=== PATIENT | male | born 1950 | race Caucasian/White ===

== ENCOUNTER 2019-05-20 13:42 | Day surgery (SDC) | payer BC ==
[~2019-05-20] VITALS: Ht 175.3 cm; Wt 92.0 kg
[2019-05-20] MEDS ORDERED: PRINIVIL20 MG PO (14:40)
[2019-05-20] MEDS ORDERED: HCTZ 25MG TAB25 MG PO (14:43)
[2019-05-20] MEDS ORDERED: KLOR-CON 1010 MEQ PO (14:43)
[2019-05-20] MEDS ORDERED: GLUCOPHAGE XR500 M1 PO (14:44)
[2019-05-20] MEDS ORDERED: CRESTOR40 MG PO (14:44)
[2019-05-20] MEDS ORDERED: TRULICITY0.75 MG/0. SQ (14:45)
[2019-05-20] MEDS ORDERED: ASPIRIN E.C. 8181 MG PO (14:45)
[2019-05-20] MEDS ORDERED: AMBIEN 10MG10 MG PO (14:45)
[2019-05-20 15:00] VITALS: BP 116/76; PULSE 93; TEMP 97.9
[2019-05-20 18:40] VITALS: BP 106/67; PULSE 65; TEMP 98
[2019-05-20 21:26] VITALS: BP 106/67; PULSE 64; TEMP 97.8
--- NOTE | 2019-05-20 21:28 | NUR ---
Pt discharge instructions given. All questions asked and answered. IV taken out of right hand, CD& intact. Pt walked out by nursing staff.
== END 2019-05-20 21:30 | disposition home or self-care (01) ==
LOC: SDCO 13:42 → SURG 18:45 → SDCO 21:30
DX: C67.2 Malignant neoplasm of lateral wall of bladder (principal); I25.10 Atherosclerotic heart disease of native coronary artery without angina pectoris; E11.9 Type 2 diabetes mellitus without complications; I10 Essential (primary) hypertension; Z79.82 Long term (current) use of aspirin; Z79.84 Long term (current) use of oral hypoglycemic drugs; F17.210 Nicotine dependence, cigarettes, uncomplicated; Z82.5 Family history of asthma and other chronic lower respiratory diseases; Z82.49 Family history of ischemic heart disease and other diseases of the circulatory system
CPT/HCPCS: OP; C1769; C2617; J0690; J2250; J2704; J3010; J7030; Q9967; Q9968